=== PATIENT | female | born 1995 | race American Indian/Alaskan Native ===

== ENCOUNTER 2017-11-29 12:09 | Emergency (ER) | payer MEDICAID ==
[2017-12-02 14:00] VITALS: BP 128/83; PULSE 97; O2SAT 100
== END 2017-11-29 12:46 | disposition left against medical advice (07) ==
LOC: C.EROB 12:09
DX: O26.893 Other specified pregnancy related conditions, third trimester (principal); Z3A.28 28 weeks gestation of pregnancy; R10.11 Right upper quadrant pain; R10.31 Right lower quadrant pain